=== PATIENT | female | born 2000 | race African-American/Black ===

== ENCOUNTER 2018-10-09 16:21 | Emergency (ER) | payer SELFPAY ==
[~2018-10-09] VITALS: Ht 162.6 cm; Wt 56.0 kg
[2018-10-09] MEDS ORDERED: AZITHROMYCIN 500 MG TABLET PO ONE (18:30)
[2018-10-09] MEDS ORDERED: CEFTRIAXONE SODIUM 250 MG/VIAL IM ONE (18:30)
[2018-10-09] MEDS ORDERED: LIDOCAINE HCL/PF 1% 10 MG/ML 5ML VIAL IJ ONE (18:30)
[2018-10-09 19:02] LABS: CLARITY URINE CLOUDY (CLEAR); COLOR URINE YELLOW (YELLOW); KETONES URINE NEGATIVE (NEGATIVE); LEUKOCYTE ESTERASE URINE 3+ (NEGATIVE); NITRITE URINE NEGATIVE (NEGATIVE); OCCULT BLOOD URINE NEGATIVE (NEGATIVE); PROTEIN URINE NEGATIVE (NEGATIVE); SPECIFIC GRAVITY URINE 1.017 (1.005-1.030); UROBILINOGEN URINE 0.2 E.U./dL (0.2-1.0)
[2018-10-09 19:03] VITALS: BP 130/65
[2018-10-12 08:21] LABS: CHLAMYDIA TRACHOMATIS NAA Negative (Negative); NEISSERIA GONORRHOEAE NAA Negative (Negative)
== END 2018-10-09 19:03 | disposition home or self-care (01) ==
LOC: ER 16:21
DX: Z20.2 Contact with and (suspected) exposure to infections with a predominantly sexual mode of transmission (principal); F17.200 Nicotine dependence, unspecified, uncomplicated
CPT/HCPCS: 81003; 87210; 87491; 87591; 96372; 99283; J0696; J3490